=== PATIENT | male | born 1950 | race Caucasian/White ===

== ENCOUNTER 2025-04-11 07:56 | Inpatient (IN) ==
--- NOTE | 2025-04-11 08:24 | Emergency Department Note ---
Impression & Plan Mass of pancreas, Adenopathy, Epigastric abdominal pain ED Provider Note NAME: REMEDIOS GUY AGE: 74 SEX: M : 1950 ARRIVES VIA: Walk-In INFORMANT: Patient, ED PROVIDER(S): Mike Diop DO CHIEF COMPLAINT: Abdominal pain HPI: The patient is a 74-year-old male who presented to the emergency department for upper abdominal pain. The patient's had upper abdominal pain over the course of the last several weeks. The patient was seen by his primary care physician. He is had some laboratory studies done as well as some radiographic studies but no definite cause for his pain could be found as of yet. The patient has been having generalized weakness. He is also been having fatigue. The patient denies having any black or tarry stools. He did have anemia noted on his workup. His presents to the Emergency Department with him and does give part of the history. The patient has noticed some swelling at the base of his neck. Also some swelling in his left axilla. ROS: See above HPI for pertinent positives & negatives. A total of 10 systems reviewed and were otherwise negative. PAST MEDICAL HISTORY: See Below PAST SURGICAL HISTORY: See Below FAMILY HISTORY: See Below SOCIAL HISTORY: See Below HOME MEDICATIONS: See Below ALLERGIES: See Below VITALS: See Below PHYSICAL EXAMINATION: GENERAL: Patient is awake alert in no acute distress patient is resting comfortably and showing no signs of anxiety EYES: The conjunctivae are clear. The pupils are round and reactive. EARS, NOSE, MOUTH AND THROAT: The nose is without any evidence of any deformity. NECK: The neck is nontender and supple. There was questionable adenopathy noted in the supraclavicular region on the left side. RESPIRATORY: Normal respiratory effort is noted there is no evidence of wheezing rhonchi or rales CARDIOVASCULAR: Regular rate and rhythm noted there no murmurs rubs or gallops normal S1 normal S2. GASTROINTESTINAL: The abdomen is soft and distended. There is left lower quadrant tenderness to palpation which is moderate. There is no guarding rigidity. MUSCULOSKELETAL/EXTREMITIES: There is no evidence of gross deformity full range of motion is noted in the hips and shoulders. SKIN: There is no obvious evidence of any rash. There are no petechiae, pallor or cyanosis noted. NEUROLOGIC: Patient is awake alert and oriented x3. Gait was stable. MEDICAL DECISION MAKING: The patient is a 74-year-old male who presented to the emergency department for an evaluation of epigastric pain. The patient's had ongoing symptoms over the last several weeks. The patient also noticed weight loss as well as adenopathy in the supraclavicular region as well as the axilla. The patient did have a workup through his primary care physician but at this time no imaging of his abdomen other than an ultrasound was done. I discussed the patient's laboratory and radiographic studies with him. He was treated with pain medication in the emergency department. At this time the patient does appear to have a mass which is either part of his pancreas or adjacent to his pancreas which is likely the primary cause of the patient's presentation. He was also found to have diffuse adenopathy in the thoracic and abdominal regions. Given these findings the patient may require further inpatient workup as well as biopsy for a tissue diagnosis. The patient's case was discussed with the [facility]ist group. Triage Nursing notes reviewed. Prior medical records reviewed Vital Signs: reviewed and remarkable for elevated blood pressure. Differential diagnosis: Etiologies such as appendicitis, diverticulitis, obstruction, inflammatory bowel disease, renal colic, PUD, biliary pathology, pancreatitis, mesenteric ischemia, aortic pathology, infections, genitourinary, UTI, perforated viscus, as well as others were entertained. ER treatment provided: See below Diagnostics interpreted by me: ECG: EKG was obtained in the emergency department. My interpretation is sinus tachycardia 111 bpm. No PVCs were noted. Right bundle branch block pattern was appreciated. QTc was 522 ms. This is likely secondary to the bundle branch calculation. Cardiac Monitoring: An order was placed for continuous cardiac monitoring. The monitor shows a rate of 105 bpm with sinus rhythm. Laboratory studies: As stated above and show below. Imaging studies: See below. Radiographic imaging was reviewed by myself Consultation(s): I discussed this case with Mireille who is on-call for the [facility] hospitalist group. Past Med/Surg History Problem List (Updated 04/11/25 @ 10:14 by Mike Diop DO) Epigastric abdominal pain (Acute) Adenopathy (Acute) Mass of pancreas (Acute) Medical History (Updated 04/11/25 @ 10:14 by Mike Diop DO) Diabetes Hypertension Surgical History (Updated 04/11/25 @ 09:56 by Mike Diop DO) History of appendectomy Social History Smoking Status: Former smoker Tobacco Type: Cigarettes Preferred Language: Chinese Feels Safe at Home: Yes Home Meds Home Medications Medication Instructions Recorded Confirmed aspirin 81 mg tablet 81 mg PO DAILY 04/11/25 04/11/25 cholecalciferol (vitamin D3) 25 1,000 unit PO DAILY 04/11/25 04/11/25 mcg (1,000 unit) tablet (Vitamin D3) empagliflozin 10 mg tablet 0 mg PO DIRECTED 04/11/25 04/11/25 (Jardiance) finasteride 5 mg tablet 5 mg PO QAM 04/11/25 04/11/25 metformin 500 mg tablet 500 mg PO BID 04/11/25 04/11/25 simvastatin 40 mg tablet 40 mg PO HS 04/11/25 04/11/25 terazosin 2 mg capsule 2 mg PO HS 04/11/25 04/11/25 Results & Data (ED) Vital Signs Vital Signs - 24 hr 04/11/25 08:01 04/11/25 08:19 04/11/25 08:20 Temperature 36.5 C Temperature Source Temporal Artery Scan Pulse Rate 97 H 110 H Pulse Rate [Apical] 105 H Respiratory Rate 16 12 Respiratory Effort / Characteristics Non-Labored Respiratory Depth Normal Blood Pressure 150/84 H Blood Pressure [Right Arm] 148/92 H Blood Pressure Mean 106 Blood Pressure Mean [Right Arm] 110 Pulse Oximetry 97 98 Oxygen Delivery Method Room Air Room Air Sepsis Recent Fever Within 48 Hours No Sepsis New/Unexplained Change in Mental Status No Sepsis Action Taken by Nursing No Action Required 04/11/25 08:20 04/11/25 10:31 Temperature Temperature Source Pulse Rate 105 H Pulse Rate [Apical] 87 Respiratory Rate 12 20 Respiratory Effort / Characteristics Respiratory Depth Blood Pressure Blood Pressure [Right Arm] 179/92 H Blood Pressure Mean Blood Pressure Mean [Right Arm] 121 Pulse Oximetry 98 98 Oxygen Delivery Method Room Air Room Air Sepsis Recent Fever Within 48 Hours Sepsis New/Unexplained Change in Mental Status Sepsis Action Taken by [facility] Medications Current Medication List: was personally reviewed by me Laboratory Data Attestation: I reviewed the patient's lab results. 04/11/25 08:18 04/11/25 08:18 Lab Results 04/11/25 04/11/25 Range/Units 08:18 08:22 WBC 6.47 (4.8-10.8) K/ul RBC 4.86 (4.70-6.10) M/uL Hgb 11.9 L (14.0-18.0) g/dl POC Hgb 13.3 L (14.0-18.0) g/dl Hct 36.6 L (42.0-52.0) % POC Hct 39 L (42-52) % MCV 75.3 L (80.0-100.0) fL MCH 24.5 L (25.0-34.0) pg MCHC 32.5 (32.0-36.0) g/dL RDW Std Deviation 43.8 (36.4-46.3) fL RDW Coeff of Grady 16.0 H (11.5-14.5) % Plt Count 184 (130-400) K/uL MPV 9.7 (9.4-12.4) fL Immature Gran % (Auto) 0.2 % Neut % (Auto) 69.9 % Lymph % (Auto) 11.9 % Brantley % (Auto) 15.8 % Eos % (Auto) 1.9 % Baso % (Auto) 0.3 % Neut # (Auto) 4.53 (1.40-6.50) K/uL Lymph # (Auto) 0.77 L (1.20-3.40) K/uL Brantley # (Auto) 1.02 H (0.11-0.59) K/uL Eos # (Auto) 0.12 (0.00-0.50) K/uL Baso # (Auto) 0.02 (0.00-0.20) K/uL Immature Gran # (Auto) 0.01 (0.01-0.20) K/uL PT 11.5 (9.0-12.0) Seconds INR 1.1 (0.9-1.1) APTT 29 (21-31) Seconds PTT Ratio 1.1 POC Sodium 136 (135-144) mmol/L Sodium 134 L (136-145) mmol/L POC Potassium 3.8 (3.3-5.0) mmol/L Potassium 3.8 (3.5-5.1) mmol/L POC Chloride 104 (101-112) mmol/L Chloride 101 (98-107) mmol/L Carbon Dioxide 25 (21-32) mmol/L POC Total CO2 22 L (24-31) mmol/L Anion Gap 8 (3-11) POC Anion Gap 15.0 L (16-25) mmol/L POC BUN 15 (7-18) mg/dl BUN 15 (6-23) mg/dl Creatinine 1.03 (0.6-1.4) mg/dl POC Creatinine 1.1 (0.6-1.3) mg/dl Est Cr Clr Drug Dosing 71.8 ml/min eGFR 75.75 BUN/Creatinine Ratio 14.6 (10-20) Glucose 162 H (70-99(Fasting)) mg/dl POC Glucose (other) 165 H (70-99) mg/dl Calcium 10.2 (8.6-10.3) mg/dl POC Ioniz Calcium Markus 1.23 (1.12-1.32) mmol/l Total Bilirubin 0.4 (0.2-1.0) mg/dl AST 20 (13-39) U/L ALT 21 (7-52) U/L Alkaline Phosphatase 70 (34-104) U/L Troponin I High Sens 7.2 (0-20) pg/ml Total Protein 8.1 (6.0-8.3) gm/dl Albumin 3.5 (3.4-5.0) gm/dl Globulin 4.6 H (2.5-4.0) gm/dl Albumin/Globulin Ratio 0.8 L (0.9-2) Lipase 31 (11-82) U/L Urine Color Yellow Urine Appearance Clear (Clear) Urine pH 6.0 (4.5-7.5) Ur Specific [place] 1.016 (1.000-1.030) Urine Protein 1+ H (Negative) Urine Glucose (UA) Negative (Negative) Urine Ketones 1+ H (Negative) Urine Blood Negative (Negative) Urine Nitrite Negative (Negative) Urine Bilirubin Negative (Negative) Urine Urobilinogen Negative (Negative) Ur Leukocyte Esterase Negative (Negative) Urine WBC (Auto) 0-5 (0-5) /hpf Urine RBC (Auto) 0-2 (0-2) /hpf U Hyaline Cast (Auto) 3-5 H (0-2) /lpf U Epithel Cells (Auto) 0-2 (0-2) /hpf Urine Bacteria (Auto) None Seen (None Seen) Urine Comment Administered Medications Morphine Sulfate (Morphine Sulfate 4 Mg/Ml 1 Ml Carp\Vial) 4 mg IV Q15M PRN PRN Reason: Pain Stop: 04/25/25 08:20 Last Admin: 04/11/25 08:31 Dose: 4 mg Documented By: MARY Discontinued Medications Sodium Chloride (Nss) 1,000 mls @ 999 mls/hr IV .Q1H1M STA Stop: 04/11/25 09:21 Last Infusion: 04/11/25 10:06 Dose: Infused Documented By: Admin: 04/11/25 08:31 Dose: 999 mls/hr Documented By: MARY Ioversol (Optiray 320 125ml) 120 ml IV ONCE ONE Stop: 04/11/25 08:40 Last Admin: 04/11/25 08:40 Dose: 120 ml Documented By: CLAUDETTE Ondansetron HCl (Ondansetron Inj 2 Mg/Ml 2 Ml Vial) 4 mg IV NOW STA Stop: 04/11/25 08:22 Last Admin: 04/11/25 08:31 Dose: 4 mg Documented By: MARY Imaging Data Attestation: I personally reviewed and interpreted this imaging study as follows: My Impression: CT of the abdomen and pelvis was obtained in the emergency department. My interpretation is no free air or signs of bowel obstruction, final report below. Radiologist's Impression: Abdomen/Pelvis CT 04/11/25 08:21 EXAM: CT Angiography Chest and CT Abdomen and Pelvis With Intravenous Contrast INDICATION: Upper abdominal pain, fatigue and weight loss. TECHNIQUE: Axial computed tomographic angiography images of the chest and axial computed tomography images of the abdomen and pelvis with intravenous contrast. Sagittal and coronal reformatted images were created and reviewed. This CT exam was performed using one or more of the following dose reduction techniques: automated exposure control, adjustment of the mA and/or kV according to patient size, and/or use of iterative reconstruction technique. MIP reconstructed images were created and reviewed. CONTRAST: 120 ml of Optiray 320 was administered intravenously. COMPARISON: No relevant prior studies available. FINDINGS: CHEST: Aorta: See below. Pulmonary arteries: No significant abnormality noted. No pulmonary embolism is identified. Great vessels of aortic arch: No acute change noted. No dissection. No arterial occlusion or significant stenosis. Lungs and pleural spaces: No abnormality noted. No mass. No consolidation. No significant effusion. No pneumothorax. Heart: No abnormality noted. No cardiomegaly. No significant pericardial effusion. ABDOMEN: Liver: The liver is enlarged measuring 23.0 cm long. Hypodensity noted typical of fatty replacement. Smooth cortical contour. No mass or ductal dilation. Gallbladder and bile ducts: No abnormality noted. No calcified stones. No ductal dilation. Pancreas: Inseparable from the posterior aspect of the pancreatic body is a 5.7 x 3.5 x 4.5 cm.The mass encases the celiac trunk without occlusion. Possible mild distal pancreatic inflammation. No pancreatic gas. No evidence ductal dilatation. Spleen: The spleen is enlarged to 14.2 cm. There multiple foci of hypodensity. Adrenals: No abnormality noted. No mass. Kidneys and ureters: Simple bilateral renal cysts noted. No follow-up necessary. No stones or hydronephrosis. No solid mass. Stomach and bowel: No abnormality noted. No obstruction. No mucosal thickening. PELVIS: Appendix: Appendectomy. Bladder: Mild thickening of the urinary bladder present. No gas or stones. Reproductive: No significant abnormality noted. CHEST, ABDOMEN and PELVIS: Intraperitoneal space: Small amounts of free fluid in the pelvis. No abscess. No free air. There is mild scattered stranding of the mesentery and retroperitoneal fat. Bones/joints: Degenerative changes noted throughout the spine. No acute osseous abnormality seen. Soft tissues: No abnormality noted. Vasculature: Atherosclerotic calcification of the aorta and branches. No aneurysm. Lymph nodes: Multiple enlarged left axillary nodes present measuring up to short axis dimension 1.7 cm. There are multiple shoddy and minimally enlarged paratracheal nodes. There are small retrocrural nodes. There are matted retroperitoneal nodes measuring up to 2.2 cm diameter. Increased numbers of small mesenteric nodes present. There are shotty periportal nodes. There are shotty and few minimally enlarged bilateral iliac nodes. IMPRESSION: 1. There is a mass within or abutting the pancreatic body with findings concerning for mild acute pancreatitis of the tail. 2. Thoracic, abdominal and pelvic adenopathy most concerning for metastatic disease. 3. Hepatosplenomegaly. Areas of hypodensity scattered throughout the spleen could reflect metastatic disease. 4. Suspect cystitis. Correlate with urinalysis. 5. No pulmonary embolus noted. 6. Large fatty liver. ACT 112: N/A Electronically signed by Suad Hilton 04-11-2025 09:13 AM Chest CTA 04/11/25 08:21 EXAM: CT Angiography Chest and CT Abdomen and Pelvis With Intravenous Contrast INDICATION: Upper abdominal pain, fatigue and weight loss. TECHNIQUE: Axial computed tomographic angiography images of the chest and axial computed tomography images of the abdomen and pelvis with intravenous contrast. Sagittal and coronal reformatted images were created and reviewed. This CT exam was performed using one or more of the following dose reduction techniques: automated exposure control, adjustment of the mA and/or kV according to patient size, and/or use of iterative reconstruction technique. MIP reconstructed images were created and reviewed. CONTRAST: 120 ml of Optiray 320 was administered intravenously. COMPARISON: No relevant prior studies available. FINDINGS: CHEST: Aorta: See below. Pulmonary arteries: No significant abnormality noted. No pulmonary embolism is identified. Great vessels of aortic arch: No acute change noted. No dissection. No arterial occlusion or significant stenosis. Lungs and pleural spaces: No abnormality noted. No mass. No consolidation. No significant effusion. No pneumothorax. Heart: No abnormality noted. No cardiomegaly. No significant pericardial effusion. ABDOMEN: Liver: The liver is enlarged measuring 23.0 cm long. Hypodensity noted typical of fatty replacement. Smooth cortical contour. No mass or ductal dilation. Gallbladder and bile ducts: No abnormality noted. No calcified stones. No ductal dilation. Pancreas: Inseparable from the posterior aspect of the pancreatic body is a 5.7 x 3.5 x 4.5 cm. The mass encases the celiac trunk without occlusion.Possible mild distal pancreatic inflammation. No pancreatic gas. No evidence ductal dilatation. Spleen: The spleen is enlarged to 14.2 cm. There multiple foci of hypodensity. Adrenals: No abnormality noted. No mass. Kidneys and ureters: Simple bilateral renal cysts noted. No follow-up necessary. No stones or hydronephrosis. No solid mass. Stomach and bowel: No abnormality noted. No obstruction. No mucosal thickening. PELVIS: Appendix: Appendectomy. Bladder: Mild thickening of the urinary bladder present. No gas or stones. Reproductive: No significant abnormality noted. CHEST, ABDOMEN and PELVIS: Intraperitoneal space: Small amounts of free fluid in the pelvis. No abscess. No free air. There is mild scattered stranding of the mesentery and retroperitoneal fat. Bones/joints: Degenerative changes noted throughout the spine. No acute osseous abnormality seen. Soft tissues: No abnormality noted. Vasculature: Atherosclerotic calcification of the aorta and branches. No aneurysm. Lymph nodes: Multiple enlarged left axillary nodes present measuring up to short axis dimension 1.7 cm. There are multiple shoddy and minimally enlarged paratracheal nodes. There are small retrocrural nodes. There are matted retroperitoneal nodes measuring up to 2.2 cm diameter. Increased numbers of small mesenteric nodes present. There are shotty periportal nodes. There are shotty and few minimally enlarged bilateral iliac nodes. IMPRESSION: 1. There is a mass within or abutting the pancreatic body with findings concerning for mild acute pancreatitis of the tail. 2. Thoracic, abdominal and pelvic adenopathy most concerning for metastatic disease. 3. Hepatosplenomegaly. Areas of hypodensity scattered throughout the spleen could reflect metastatic disease. 4. Suspect cystitis. Correlate with urinalysis. 5. No pulmonary embolus noted. 6. Large fatty liver. ACT 112: N/A Electronically signed by Suad Hilton 04-11-2025 09:13 AM Discharge Plan Visit Data Chief Complaint: Illness Stated Complaint: FATIGUE, WEAKNESS, COLD, ANEMIC ED Provider: Mike Diop Discharge Problem: Mass of pancreas, Adenopathy, Epigastric abdominal pain Patient Disposition: Being Evaluated by Hospitalist Condition: Fair Forms Stand Alone Forms: My [facility] Prescriptions Prescriptions: No Action metformin 500 mg tablet 500 mg PO BID simvastatin 40 mg tablet 40 mg PO HS terazosin 2 mg capsule 2 mg PO HS aspirin 81 mg Tablet 81 mg PO DAILY finasteride 5 mg tablet 5 mg PO QAM cholecalciferol (vitamin D3) [Vitamin D3] 25 mcg (1,000 unit) Tablet 1,000 unit PO DAILY Jardiance 10 mg tablet 0 mg PO DIRECTED Rx Instructions: IS PRESRIBED BUT STOP TAKING AROUND 3 WEEKS AGO DUE TO MAKING HIM FEEL ILL Referrals Referrals: PCP,NO [Primary Care Provider] -
[2025-04-11 08:30] LABS: Hematocrit (blood only) 36.6 % (42.0-52.0); Hemoglobin 11.9 g/dl (14.0-18.0); Immature Granulocytes # (auto) 0.01 K/uL (0.01-0.20); Immature Granulocytes % (auto) 0.2 %; Mean Corpuscular Hemoglobin 24.5 pg (25.0-34.0); Mean Corpuscular Volume 75.3 fL (80.0-100.0); Platelet Count 184 K/uL (130-400); RDW Standard Deviation 43.8 fL (36.4-46.3); Red Blood Count 4.86 M/uL (4.70-6.10); White Blood Count 6.47 K/ul (4.8-10.8)
[2025-04-11] MEDS: MoRPHine SULFATE 4 MG/ML 1 ML CARP\\VIAL IV PRN (08:31)
[2025-04-11] MEDS: ONDANSETRON INJ 2 MG/ML 2 ML VIAL IV STA (08:31)
[2025-04-11] MEDS: SODIUM CHLORIDE 0.9% 1,000 ML IV STA (08:31)
[2025-04-11 08:37] LABS: Appearance Urine Clear (Clear); Bacteria Urine Automated None Seen (None Seen); Epithelial Cell Urine Auto 0-2 /hpf (0-2); Glucose Urine UA Negative (Negative); RBC Urine Automated 0-2 /hpf (0-2); WBC Urine Automated 0-5 /hpf (0-5)
[2025-04-11] MEDS: OPTIRAY 320 125ml IV ONE (08:40)
[2025-04-11 08:47] LABS: Alanine Aminotransferase 21.0 U/L (7-52); Albumin Globulin Ratio 0.8 (0.9-2); Albumin Level 3.5 gm/dl (3.4-5.0); Alkaline Phosphatase 70.0 U/L (34-104); Anion Gap 8.0 (3-11); Bilirubin,Total 0.4 mg/dl (0.2-1.0); Blood Urea Nitrogen 15.0 mg/dl (6-23); Calcium 10.2 mg/dl (8.6-10.3); Carbon Dioxide 25.0 mmol/L (21-32); Chloride 101.0 mmol/L (98-107); Creatinine Clr Calc Pharmacy 71.8 ml/min; Globulin 4.6 gm/dl (2.5-4.0); Glucose 162.0 mg/dl (70-99(Fasting)); Lipase 31.0 U/L (11-82); Potassium 3.8 mmol/L (3.5-5.1); Sodium 134.0 mmol/L (136-145); Total Protein 8.1 gm/dl (6.0-8.3)
--- NOTE | 2025-04-11 09:13 | CT Scan Report ---
EXAM: CT Angiography Chest and CT Abdomen and Pelvis With Intravenous Contrast INDICATION: Upper abdominal pain, fatigue and weight loss. TECHNIQUE: Axial computed tomographic angiography images of the chest and axial computed tomography images of the abdomen and pelvis with intravenous contrast. Sagittal and coronal reformatted images were created and reviewed. This CT exam was performed using one or more of the following dose reduction techniques: automated exposure control, adjustment of the mA and/or kV according to patient size, and/or use of iterative reconstruction technique. MIP reconstructed images were created and reviewed. CONTRAST: 120 ml of Optiray 320 was administered intravenously. COMPARISON: No relevant prior studies available. FINDINGS: CHEST: Aorta: See below. Pulmonary arteries: No significant abnormality noted. No pulmonary embolism is identified. Great vessels of aortic arch: No acute change noted. No dissection. No arterial occlusion or significant stenosis. Lungs and pleural spaces: No abnormality noted. No mass. No consolidation. No significant effusion. No pneumothorax. Heart: No abnormality noted. No cardiomegaly. No significant pericardial effusion. ABDOMEN: Liver: The liver is enlarged measuring 23.0 cm long. Hypodensity noted typical of fatty replacement. Smooth cortical contour. No mass or ductal dilation. Gallbladder and bile ducts: No abnormality noted. No calcified stones. No ductal dilation. Pancreas: Inseparable from the posterior aspect of the pancreatic body is a 5.7 x 3.5 x 4.5 cm. The mass encases the celiac trunk without occlusion.Possible mild distal pancreatic inflammation. No pancreatic gas. No evidence ductal dilatation. Spleen: The spleen is enlarged to 14.2 cm. There multiple foci of hypodensity. Adrenals: No abnormality noted. No mass. Kidneys and ureters: Simple bilateral renal cysts noted. No follow-up necessary. No stones or hydronephrosis. No solid mass. Stomach and bowel: No abnormality noted. No obstruction. No mucosal thickening. PELVIS: Appendix: Appendectomy. Bladder: Mild thickening of the urinary bladder present. No gas or stones. Reproductive: No significant abnormality noted. CHEST, ABDOMEN and PELVIS: Intraperitoneal space: Small amounts of free fluid in the pelvis. No abscess. No free air. There is mild scattered stranding of the mesentery and retroperitoneal fat. Bones/joints: Degenerative changes noted throughout the spine. No acute osseous abnormality seen. Soft tissues: No abnormality noted. Vasculature: Atherosclerotic calcification of the aorta and branches. No aneurysm. Lymph nodes: Multiple enlarged left axillary nodes present measuring up to short axis dimension 1.7 cm. There are multiple shoddy and minimally enlarged paratracheal nodes. There are small retrocrural nodes. There are matted retroperitoneal nodes measuring up to 2.2 cm diameter. Increased numbers of small mesenteric nodes present. There are shotty periportal nodes. There are shotty and few minimally enlarged bilateral iliac nodes. IMPRESSION: 1. There is a mass within or abutting the pancreatic body with findings concerning for mild acute pancreatitis of the tail. 2. Thoracic, abdominal and pelvic adenopathy most concerning for metastatic disease. 3. Hepatosplenomegaly. Areas of hypodensity scattered throughout the spleen could reflect metastatic disease. 4. Suspect cystitis. Correlate with urinalysis. 5. No pulmonary embolus noted. 6. Large fatty liver. ACT 112: N/A Electronically signed by Suad Hilton 04-11-2025 09:13 AM
[2025-04-11 09:17] LABS: INR 1.1 (0.9-1.1); Partial Thromboplastin Time 29 Seconds (21-31); Prothrombin Time 11.5 Seconds (9.0-12.0)
--- NOTE | 2025-04-11 11:23 | History & Physical Report ---
Date of Service April 11, 2025 Assessment & Plan (1) Epigastric abdominal pain: (2) Adenopathy: (3) Mass of pancreas: (4) Diabetes: (5) Hypertension: Plan The patient is a 74-year-old male who presented to the ED on 04/11/2025 with complaints of 50 pound weight loss/generalized abdominal pain over the past 5-6 months, found to have new pancreatic mass New pancreatic mass Splenic mets Abdominal/axillary lymphadenopathy 5-6 months of ongoing generalized pain -Outpatient abdominal ultrasound showed 2 lesions on the pancreas CT A/P with splenic mets/lymphadenopathy/pancreatic mass Consult GI, abdominal MRI adbomen pending, pain control -NPO MN - for possible biopsy tomorrow Dm2: Managed on metformin at home, recently taken off of Jardiance due to side effects SSI while inpatient, CTM Hx BPH: Continue terazosin/finasteride A total of 55 minutes was spent on chart review/reviewing diagnostic data/facilitating plan of care/discussion with consultants Full code Dvt proph: lovenox History of Present Illness Chief Complaint: Abdominal pain, weight loss Primary Care Provider: NO PCP The patient is a 74-year-old male with a past medical history of DM2, HLD, HTN, BPH, vitamin D deficiency who presents to the ED on 04/11/2025 with complaints of ongoing abdominal pain over the past 5 weeks patient's also reports fatigue and loss of appetite. Patient had a 50 pound weight loss over the past 2 years. Patient was following with his doctors outpatient but his was concerned and wanted him to be evaluated sooner. The patient reports that the patient had an outpatient ultrasound of his abdomen and right upper quadrant that showed 2 small lesions on his pancreas. They were scheduled to have an MRI of the abdomen on may 07. Patient's denies any fever/chills/chest pain/shortness of breath. He does report some very vague symptoms including the patient claiming that he felt he was "punched in his stomach" and had a dull right upper quadrant pain. The patient was started on Jardiance 1 year ago and the weight loss was contributed to the Jardiance. The patient was also constipated, he had a colonoscopy completed in January that was unremarkable. Labs are remarkable for hemoglobin 11.9, NA 134, CO2 22, anion gap 15, glucose 162, urinalysis unremarkable Chest CTA/ Abdominal/pelvis CT showed: 1. There is a mass within or abutting the pancreatic body with findings concerning for mild acute pancreatitis of the tail. 2. Thoracic, abdominal and pelvic adenopathy most concerning for metastatic disease. 3. Hepatosplenomegaly. Areas of hypodensity scattered throughout the spleen could reflect metastatic disease. 4. Suspect cystitis. Correlate with urinalysis. 5. No pulmonary embolus noted. 6. Large fatty liver. Lymph nodes: Multiple enlarged left axillary nodes present measuring up to short axis dimension 1.7 cm. There are multiple shoddy and minimally enlarged paratracheal nodes. There are small retrocrural nodes. There are matted retroperitoneal nodes measuring up to 2.2 cm diameter. Increased numbers of small mesenteric nodes present. There are shotty periportal nodes. There are shotty and few minimally enlarged bilateral iliac nodes. Allergies Allergy/AdvReac Type Severity Reaction Status Date / Time niacin AdvReac Unknown Unknown Verified 04/11/25 11:32 Home Medications Medication Instructions Recorded Confirmed Type aspirin 81 mg tablet 81 mg PO DAILY 04/11/25 04/11/25 History cholecalciferol (vitamin D3) 25 1,000 unit PO DAILY 04/11/25 04/11/25 History mcg (1,000 unit) tablet (Vitamin D3) empagliflozin 10 mg tablet 0 mg PO DIRECTED 04/11/25 04/11/25 History (Jardiance) finasteride 5 mg tablet 5 mg PO QAM 04/11/25 04/11/25 History metformin 500 mg tablet 500 mg PO BID 04/11/25 04/11/25 History simvastatin 40 mg tablet 40 mg PO HS 04/11/25 04/11/25 History terazosin 2 mg capsule 2 mg PO HS 04/11/25 04/11/25 History Past Med/Surg History Problem List (Updated 04/11/25 @ 10:14 by Mike Diop DO) Epigastric abdominal pain (Acute) Adenopathy (Acute) Mass of pancreas (Acute) Medical History (Updated 04/11/25 @ 10:14 by Mike Diop DO) Diabetes Hypertension Surgical History (Updated 04/11/25 @ 09:56 by Mike Diop DO) History of appendectomy Social History Smoking Status: Former smoker Tobacco Type: Cigarettes Second Hand Exposure: No; Do You Dip or Chew Tobacco: No; Hx Alcohol Use: No Hx Substance Use: No Preferred Language: Venezuelan Communication Ability: Effective Welfare Project Manager Required: No Beliefs That Will Affect Care: None Current Living Situation: Spouse Other Information That Helps Us Care for You: No Feels Safe at Home: Yes Safety Concerns: Feels Safe At This Time Assistive Devices: None Review of Systems Review of Systems: All systems reviewed & are unremarkable except as noted in HPI & below Physical Exam Physical Exam: please see addendum Results & Data Results & Data Vital Signs (Past 12 Hours) Vital Signs Temp Pulse Pulse Resp BP BP Pulse Ox 04/11/25 10:31 87 20 179/92 H 98 04/11/25 08:20 105 H 12 98 04/11/25 08:20 105 H 12 148/92 H 98 04/11/25 08:19 110 H 04/11/25 08:01 36.5 C 97 H 16 150/84 H 97 O2 Del Method 04/11/25 10:31 Room Air 04/11/25 08:20 Room Air 04/11/25 08:20 Room Air 04/11/25 08:19 04/11/25 08:01 Room Air Laboratory Results Laboratory Results WBC 6.47 K/ul (4.8-10.8) 04/11/25 08:18 RBC 4.86 M/uL (4.70-6.10) 04/11/25 08:18 Hgb 11.9 g/dl (14.0-18.0) L 04/11/25 08:18 POC Hgb 13.3 g/dl (14.0-18.0) L 04/11/25 08:22 Hct 36.6 % (42.0-52.0) L 04/11/25 08:18 POC Hct 39 % (42-52) L 04/11/25 08:22 MCV 75.3 fL (80.0-100.0) L 04/11/25 08:18 MCH 24.5 pg (25.0-34.0) L 04/11/25 08:18 MCHC 32.5 g/dL (32.0-36.0) 04/11/25 08:18 RDW Std Deviation 43.8 fL (36.4-46.3) 04/11/25 08:18 RDW Coeff of Grady 16.0 % (11.5-14.5) H 04/11/25 08:18 Plt Count 184 K/uL (130-400) 04/11/25 08:18 MPV 9.7 fL (9.4-12.4) 04/11/25 08:18 Immature Gran % (Auto) 0.2 % 04/11/25 08:18 Neut % (Auto) 69.9 % 04/11/25 08:18 Lymph % (Auto) 11.9 % 04/11/25 08:18 [place] % (Auto) 15.8 % 04/11/25 08:18 Eos % (Auto) 1.9 % 04/11/25 08:18 Baso % (Auto) 0.3 % 04/11/25 08:18 Neut # (Auto) 4.53 K/uL (1.40-6.50) 04/11/25 08:18 Lymph # (Auto) 0.77 K/uL (1.20-3.40) L 04/11/25 08:18 [place] # (Auto) 1.02 K/uL (0.11-0.59) H 04/11/25 08:18 Eos # (Auto) 0.12 K/uL (0.00-0.50) 04/11/25 08:18 Baso # (Auto) 0.02 K/uL (0.00-0.20) 04/11/25 08:18 Immature Gran # (Auto) 0.01 K/uL (0.01-0.20) 04/11/25 08:18 PT 11.5 Seconds (9.0-12.0) 04/11/25 08:18 INR 1.1 (0.9-1.1) 04/11/25 08:18 APTT 29 Seconds (21-31) 04/11/25 08:18 PTT Ratio 1.1 04/11/25 08:18 POC Sodium 136 mmol/L (135-144) 04/11/25 08:22 Sodium 134 mmol/L (136-145) L 04/11/25 08:18 POC Potassium 3.8 mmol/L (3.3-5.0) 04/11/25 08:22 Potassium 3.8 mmol/L (3.5-5.1) 04/11/25 08:18 POC Chloride 104 mmol/L (101-112) 04/11/25 08:22 Chloride 101 mmol/L (98-107) 04/11/25 08:18 Carbon Dioxide 25 mmol/L (21-32) 04/11/25 08:18 POC Total CO2 22 mmol/L (24-31) L 04/11/25 08:22 Anion Gap 8 (3-11) 04/11/25 08:18 POC Anion Gap 15.0 mmol/L (16-25) L 04/11/25 08:22 POC BUN 15 mg/dl (7-18) 04/11/25 08:22 BUN 15 mg/dl (6-23) 04/11/25 08:18 Creatinine 1.03 mg/dl (0.6-1.4) 04/11/25 08:18 POC Creatinine 1.1 mg/dl (0.6-1.3) 04/11/25 08:22 Est Cr Clr Drug Dosing 71.8 ml/min 04/11/25 08:18 eGFR 75.75 04/11/25 08:18 BUN/Creatinine Ratio 14.6 (10-20) 04/11/25 08:18 Glucose 162 mg/dl (70-99(Fasting)) H 04/11/25 08:18 POC Glucose (other) 165 mg/dl (70-99) H 04/11/25 08:22 Calcium 10.2 mg/dl (8.6-10.3) 04/11/25 08:18 POC Ioniz Calcium Markus 1.23 mmol/l (1.12-1.32) 04/11/25 08:22 Total Bilirubin 0.4 mg/dl (0.2-1.0) 04/11/25 08:18 AST 20 U/L (13-39) 04/11/25 08:18 ALT 21 U/L (7-52) 04/11/25 08:18 Alkaline Phosphatase 70 U/L (34-104) 04/11/25 08:18 Troponin I High Sens 7.2 pg/ml (0-20) 04/11/25 08:18 Total Protein 8.1 gm/dl (6.0-8.3) 04/11/25 08:18 Albumin 3.5 gm/dl (3.4-5.0) 04/11/25 08:18 Globulin 4.6 gm/dl (2.5-4.0) H 04/11/25 08:18 Albumin/Globulin Ratio 0.8 (0.9-2) L 04/11/25 08:18 Lipase 31 U/L (11-82) 04/11/25 08:18 Urine Color Yellow 04/11/25 08:18 Urine Appearance Clear (Clear) 04/11/25 08:18 Urine pH 6.0 (4.5-7.5) 04/11/25 08:18 Ur Specific Abie 1.016 (1.000-1.030) 04/11/25 08:18 Urine Protein 1+ (Negative) H 04/11/25 08:18 Urine Glucose (UA) Negative (Negative) 04/11/25 08:18 Urine Ketones 1+ (Negative) H 04/11/25 08:18 Urine Blood Negative (Negative) 04/11/25 08:18 Urine Nitrite Negative (Negative) 04/11/25 08:18 Urine Bilirubin Negative (Negative) 04/11/25 08:18 Urine Urobilinogen Negative (Negative) 04/11/25 08:18 Ur Leukocyte Esterase Negative (Negative) 04/11/25 08:18 Urine WBC (Auto) 0-5 /hpf (0-5) 04/11/25 08:18 Urine RBC (Auto) 0-2 /hpf (0-2) 04/11/25 08:18 U Hyaline Cast (Auto) 3-5 /lpf (0-2) H 04/11/25 08:18 U Epithel Cells (Auto) 0-2 /hpf (0-2) 04/11/25 08:18 Urine Bacteria (Auto) None Seen (None Seen) 04/11/25 08:18 Urine Comment 04/11/25 08:18 Impressions Abdomen/Pelvis CT 04/11/25 08:21 EXAM: CT Angiography Chest and CT Abdomen and Pelvis With Intravenous Contrast INDICATION: Upper abdominal pain, fatigue and weight loss. TECHNIQUE: Axial computed tomographic angiography images of the chest and axial computed tomography images of the abdomen and pelvis with intravenous contrast. Sagittal and coronal reformatted images were created and reviewed. This CT exam was performed using one or more of the following dose reduction techniques: automated exposure control, adjustment of the mA and/or kV according to patient size, and/or use of iterative reconstruction technique. MIP reconstructed images were created and reviewed. CONTRAST: 120 ml of Optiray 320 was administered intravenously. COMPARISON: No relevant prior studies available. FINDINGS: CHEST: Aorta: See below. Pulmonary arteries: No significant abnormality noted. No pulmonary embolism is identified. Great vessels of aortic arch: No acute change noted. No dissection. No arterial occlusion or significant stenosis. Lungs and pleural spaces: No abnormality noted. No mass. No consolidation. No significant effusion. No pneumothorax. Heart: No abnormality noted. No cardiomegaly. No significant pericardial effusion. ABDOMEN: Liver: The liver is enlarged measuring 23.0 cm long. Hypodensity noted typical of fatty replacement. Smooth cortical contour. No mass or ductal dilation. Gallbladder and bile ducts: No abnormality noted. No calcified stones. No ductal dilation. Pancreas: Inseparable from the posterior aspect of the pancreatic body is a 5.7 x 3.5 x 4.5 cm.The mass encases the celiac trunk without occlusion. Possible mild distal pancreatic inflammation. No pancreatic gas. No evidence ductal dilatation. Spleen: The spleen is enlarged to 14.2 cm. There multiple foci of hypodensity. Adrenals: No abnormality noted. No mass. Kidneys and ureters: Simple bilateral renal cysts noted. No follow-up necessary. No stones or hydronephrosis. No solid mass. Stomach and bowel: No abnormality noted. No obstruction. No mucosal thickening. PELVIS: Appendix: Appendectomy. Bladder: Mild thickening of the urinary bladder present. No gas or stones. Reproductive: No significant abnormality noted. CHEST, ABDOMEN and PELVIS: Intraperitoneal space: Small amounts of free fluid in the pelvis. No abscess. No free air. There is mild scattered stranding of the mesentery and retroperitoneal fat. Bones/joints: Degenerative changes noted throughout the spine. No acute osseous abnormality seen. Soft tissues: No abnormality noted. Vasculature: Atherosclerotic calcification of the aorta and branches. No aneurysm. Lymph nodes: Multiple enlarged left axillary nodes present measuring up to short axis dimension 1.7 cm. There are multiple shoddy and minimally enlarged paratracheal nodes. There are small retrocrural nodes. There are matted retroperitoneal nodes measuring up to 2.2 cm diameter. Increased numbers of small mesenteric nodes present. There are shotty periportal nodes. There are shotty and few minimally enlarged bilateral iliac nodes. IMPRESSION: 1. There is a mass within or abutting the pancreatic body with findings concerning for mild acute pancreatitis of the tail. 2. Thoracic, abdominal and pelvic adenopathy most concerning for metastatic disease. 3. Hepatosplenomegaly. Areas of hypodensity scattered throughout the spleen could reflect metastatic disease. 4. Suspect cystitis. Correlate with urinalysis. 5. No pulmonary embolus noted. 6. Large fatty liver. ACT 112: N/A Electronically signed by Suad Hilton 04-11-2025 09:13 AM Chest CTA 04/11/25 08:21 EXAM: CT Angiography Chest and CT Abdomen and Pelvis With Intravenous Contrast INDICATION: Upper abdominal pain, fatigue and weight loss. TECHNIQUE: Axial computed tomographic angiography images of the chest and axial computed tomography images of the abdomen and pelvis with intravenous contrast. Sagittal and coronal reformatted images were created and reviewed. This CT exam was performed using one or more of the following dose reduction techniques: automated exposure control, adjustment of the mA and/or kV according to patient size, and/or use of iterative reconstruction technique. MIP reconstructed images were created and reviewed. CONTRAST: 120 ml of Optiray 320 was administered intravenously. COMPARISON: No relevant prior studies available. FINDINGS: CHEST: Aorta: See below. Pulmonary arteries: No significant abnormality noted. No pulmonary embolism is identified. Great vessels of aortic arch: No acute change noted. No dissection. No arterial occlusion or significant stenosis. Lungs and pleural spaces: No abnormality noted. No mass. No consolidation. No significant effusion. No pneumothorax. Heart: No abnormality noted. No cardiomegaly. No significant pericardial effusion. ABDOMEN: Liver: The liver is enlarged measuring 23.0 cm long. Hypodensity noted typical of fatty replacement. Smooth cortical contour. No mass or ductal dilation. Gallbladder and bile ducts: No abnormality noted. No calcified stones. No ductal dilation. Pancreas: Inseparable from the posterior aspect of the pancreatic body is a 5.7 x 3.5 x 4.5 cm. The mass encases the celiac trunk without occlusion.Possible mild distal pancreatic inflammation. No pancreatic gas. No evidence ductal dilatation. Spleen: The spleen is enlarged to 14.2 cm. There multiple foci of hypodensity. Adrenals: No abnormality noted. No mass. Kidneys and ureters: Simple bilateral renal cysts noted. No follow-up necessary. No stones or hydronephrosis. No solid mass. Stomach and bowel: No abnormality noted. No obstruction. No mucosal thickening. PELVIS: Appendix: Appendectomy. Bladder: Mild thickening of the urinary bladder present. No gas or stones. Reproductive: No significant abnormality noted. CHEST, ABDOMEN and PELVIS: Intraperitoneal space: Small amounts of free fluid in the pelvis. No abscess. No free air. There is mild scattered stranding of the mesentery and retroperitoneal fat. Bones/joints: Degenerative changes noted throughout the spine. No acute osseous abnormality seen. Soft tissues: No abnormality noted. Vasculature: Atherosclerotic calcification of the aorta and branches. No aneurysm. Lymph nodes: Multiple enlarged left axillary nodes present measuring up to short axis dimension 1.7 cm. There are multiple shoddy and minimally enlarged paratracheal nodes. There are small retrocrural nodes. There are matted retroperitoneal nodes measuring up to 2.2 cm diameter. Increased numbers of small mesenteric nodes present. There are shotty periportal nodes. There are shotty and few minimally enlarged bilateral iliac nodes. IMPRESSION: 1. There is a mass within or abutting the pancreatic body with findings concerning for mild acute pancreatitis of the tail. 2. Thoracic, abdominal and pelvic adenopathy most concerning for metastatic disease. 3. Hepatosplenomegaly. Areas of hypodensity scattered throughout the spleen could reflect metastatic disease. 4. Suspect cystitis. Correlate with urinalysis. 5. No pulmonary embolus noted. 6. Large fatty liver. ACT 112: N/A Electronically signed by Suad Hilton 04-11-2025 09:13 AM Code Status & VTE Plan VTE Prophylaxis Plan VTE Prophylaxis will be ordered: Yes
[2025-04-11] MEDS ORDERED: DEXTROSE 50% 50 ML SYRINGE IV PRN (11:48)
[2025-04-11] MEDS ORDERED: GLUCAGON FOR INJ 1 MG VIAL SQ PRN (11:48)
[2025-04-11] MEDS ORDERED: GLUCOSE 10 TAB/TUBE PO PRN (11:48)
[2025-04-11] MEDS ORDERED: GLUCOSE 40% GEL 15 GM TUBE PO PRN (11:48)
[2025-04-11] MEDS ORDERED: CARBOHYDRATES FOR HYPOGLYCEMIA PO PRN (11:48)
[2025-04-11] MEDS: GADOBUTROL 65ML VIAL IV ONE (12:26)
--- NOTE | 2025-04-11 12:42 | Communication Note ---
Date of Service: April 11, 2025 Attending Addendum: Case reviewed with the advanced practitioner. I have personally performed a history and physical examination on the patient. I have reviewed the advanced practitioner's documentation on the date of service referenced in note, and I agree with, and take responsibility for the plan of care. please refer to her notes for full details patient seen and examined, records reviewed by myself as well on exam, patient seen resting in bed, not in distress reports he is having intermittent epigastric pain--> morphine helping no nausea/vomiting no chest pain, dyspnea, palpitations, dizziness no fever/chills no other symptoms VS noted and reviewed oriented x3, not in distress, speaks in sentences with no effort nor accessory muscle use normal rate, regular rhythm, no murmurs clear breath sounds bilaterally non distended, soft, nontender no bipedal edema, erythema, warmth no neuro deficits all labs, imaging noted and reviewed ASSESSMENT AND PLAN> PANCREATIC MASS WITH LYMPHADENOPATHY, NEW DIAGNOSIS presents with abdominal discomfort, weight loss of 50Lbs, progressive weakness for the past months highly suspicious for malignancy CT abdomen: 1. There is a mass within or abutting the pancreatic body with findings concerning for mild acute pancreatitis of the tail. 2. Thoracic, abdominal and pelvic adenopathy most concerning for metastatic disease. 3. Hepatosplenomegaly. Areas of hypodensity scattered throughout the spleen could reflect metastatic disease. 4. Suspect cystitis. Correlate with urinalysis. 5. No pulmonary embolus noted. 6. Large fatty liver. GI consult for possible endoscopic vs IR biopsy pain control IV fluids other chronic medical problems: Iron Deficiency Anemia- Hg at baseline DM 2 HTN BPH other diagnoses and plan of care as per advanced practitioner's notes I spent a total of 40 minutes coordinating, documenting, and providing care for this patient, excluding time spent in the performance of separately billed services or time spent by another provider/QHP. Amrit Frances MD
[2025-04-11] MEDS ORDERED: ACETAMINOPHEN 325 MG TAB PO PRN (12:49)
[2025-04-11] MEDS: LACTATED RINGER'S 1,000 ML IV SCH (13:29)
[2025-04-11] MEDS: ENOXAPARIN INJ 40 MG/0.4 ML SYR SQ SCH (13:34)
--- NOTE | 2025-04-11 14:00 | Magnetic Resonance Report ---
EXAM: MR abdomen wo/w con CLINICAL HISTORY: new pancreatic mass TECHNIQUE: Multiplanar, multisequence MR imaging was performed through the abdomen with and without IV contrast (9 mL Gadavist). COMPARISON: CT 04/11/2025. FINDINGS: Liver: Normal size and morphology. Homogeneous signal intensity on T1- and T2-weighted images. A few small hepatic focal lesions are seen only in T1 3D images, showing low T1 signal with no contrast enhancement, located in segments Asa (measuring 7 x 2 mm), segment VIII (measuring 5.6 x 1.5 mm), and segment V (measuring 7 x 3 mm). Normal enhancement pattern post-contrast. Gallbladder and Biliary System: The gallbladder is normal, with no stones or wall thickening. Intrahepatic and extrahepatic bile ducts are not dilated. Normal enhancement post-contrast. Pancreas: A large, irregular pancreatic mass is seen in the pancreatic body, encasing the splenic artery with almost 360 degrees of contact. It measures 4.2 x 3.6 x 3.2 cm in its maximum TS, AP, and CC dimensions, displaying mildly bright T2 and low T1 signal with restricted diffusion and mild peripheral enhancement. The lesion is inseparable from the adjacent left para-aortic amalgamated lymphadenopathy. Normal appearance of the pancreatic duct. Spleen: Multiple splenic focal lesions are noted, showing restricted diffusion and mildly bright T2 signal with mild progressive peripheral enhancement. The largest lesion is in the upper splenic pole and measures 3.7 x 3.4 cm in axial dimensions. Adrenal Glands: Normal size and morphology bilaterally. No adrenal masses. Normal enhancement post-contrast. Kidneys and Ureters: Normal size, shape, and position of both kidneys. Homogeneous signal intensity on T1- and T2-weighted images. No renal stones, masses, or hydronephrosis. Ureters are unremarkable. Normal enhancement post-contrast. Bilateral renal simple cortical cysts (Bosniak 1). Bowel: Normal appearance of the visualized bowel loops. No evidence of obstruction, wall thickening, or abnormal dilatation. No abnormal enhancement post-contrast. Vascular Structures: The abdominal aorta and its major branches are normal in caliber. No aneurysm or significant atherosclerosis. Normal enhancement post-contrast. Lymph Nodes: Multiple enlarged amalgamated abdominal lymph nodes, almost including all groups, namely, left paraaortic, aortocaval, portocaval, and peripancreatic nodes around the splenic hilum. The largest roughly measures 3.7 cm in short axis. Also, bilateral external iliac and common iliac nodes are noted. A few right paraesophageal enlarged lymph nodes are also seen Peritoneum: Mild ascites. Bones: No lytic or sclerotic lesions are seen. Soft Tissues: Normal appearance of the visualized soft tissues. IMPRESSION: 1. Pancreatic body mass with neoplastic features, with 360-degree contact with the splenic artery and inseparable from pathological abdominal amalgamated lymphadenopathy. 2. Multiple splenic focal lesions. 3. Diagnostic possibilities include lymphoma rather than metastatic pancreatic carcinoma. Histopathological correlation is advised. 4. A few hepatic focal lesions, with no restricted diffusion or enhancement, possibly simple cysts; however, close follow-up is advised. 5. Pathological abdominal and pelvic lymphadenopathy. 6. Mild ascites. Electronically signed by Elmer Childress 04-11-2025 13:59 PM
[2025-04-11] MEDS: MoRPHine SULFATE 2 MG/ML CARP IV PRN (17:05)
[2025-04-11] MEDS: INSULIN ASPART PER UNIT CHARGE SC SCH (17:10)
[2025-04-11] MEDS: SIMVASTATIN 40 MG TAB PO SCH (21:18)
[2025-04-11] MEDS: TERAZOSIN HCL 1 MG CAP PO SCH (21:18)
[2025-04-12 07:49] LABS: Hemoglobin A1C 7.4 % (4.5-5.6)
[2025-04-12] MEDS: FINASTERIDE 5 MG TAB PO SCH (08:00)
--- NOTE | 2025-04-12 10:41 | Gastrointestinal Consultation ---
Date of Consultation April 12, 2025 Assessment & Plan (1) Mass of pancreas: From a GI standpoint, could approach with outpatient EUS guided biopsy of this mass as we do not have this service at [facility]. Though after conversation with hospitalist, it does sound as though they are planning to do an IR guided lymph node biopsy. Supervising Physician Co-Signing Physician Notes I saw and examined this patient with our nurse practitioner and agree with her assessment and plan. Patient presents with newly diagnosed large pancreatic mass with extensive peripancreatic adenopathy as well as systemic adenopathy in his cervical region as well as in his axilla. Need to consider primary pancreatic cancer as well as other etiologies such as lymphoma. Plan for axillary node biopsy tomorrow. If unrevealing may need pancreatic mass biopsy via endoscopic ultrasound. History of Present Illness Reason for Consultation: "new pancreatic ca" Attending Physician: Geoffrey Suggs, History of Present Illness Patient is a 74 yo male who presents to the ED with progressive fatigue, abdominal pain, & 50 lb weight loss that have been ongoing since June 2024. He notes that things have become worse over the past 4-6 weeks, but this has been an ongoing issue for many months. He notes that as an outpatient it was felt that his weight loss was due to Jardiance. He had an unremarkable colonoscopy in January 2025. He had an outpatient US that showed 2 small pancreatic lesions. An MRI was scheduled for the outpatient setting, but his family encouraged him to come to the ED because he was having worsening abdominal pain and SOB. Since presentation, he had an MRI: IMPRESSION: 1. Pancreatic body mass with neoplastic features, with 360-degree contact with the splenic artery and inseparable from pathological abdominal amalgamated lymphadenopathy. 2. Multiple splenic focal lesions. 3. Diagnostic possibilities include lymphoma rather than metastatic pancreatic carcinoma. Histopathological correlation is advised. 4. A few hepatic focal lesions, with no restricted diffusion or enhancement, possibly simple cysts; however, close follow-up is advised. 5. Pathological abdominal and pelvic lymphadenopathy. 6. Mild ascites. Allergies Allergy/AdvReac Type Severity Reaction Status Date / Time niacin AdvReac Unknown Unknown Verified 04/11/25 11:32 Home Medications Medication Instructions Recorded Confirmed Type aspirin 81 mg tablet 81 mg PO DAILY 04/11/25 04/11/25 History cholecalciferol (vitamin D3) 25 1,000 unit PO DAILY 04/11/25 04/11/25 History mcg (1,000 unit) tablet (Vitamin D3) empagliflozin 10 mg tablet 0 mg PO DIRECTED 04/11/25 04/11/25 History (Jardiance) finasteride 5 mg tablet 5 mg PO QAM 04/11/25 04/11/25 History metformin 500 mg tablet 500 mg PO BID 04/11/25 04/11/25 History simvastatin 40 mg tablet 40 mg PO HS 04/11/25 04/11/25 History terazosin 2 mg capsule 2 mg PO HS 04/11/25 04/11/25 History Patient History Medical History Diabetes Hypertension Surgical History History of appendectomy Social History Smoking Status: Former smoker Tobacco Type: Cigarettes Second Hand Exposure: No; Do You Dip or Chew Tobacco: No; Hx Alcohol Use: No Hx Substance Use: No Preferred Language: Kittitian Communication Ability: Effective Registered Nurse Cardiovascular Icu Required: No Beliefs That Will Affect Care: None Current Living Situation: Spouse Other Information That Helps Us Care for You: No Feels Safe at Home: Yes Safety Concerns: Feels Safe At This Time Assistive Devices: Cane and Walker Review of Systems Constitutional: + fever, + fatigue and + weight loss Respiratory: no cough and no dyspnea Cardiovascular: no chest pain Gastrointestinal: + abdominal pain Physical Exam Constitutional: well developed Respiratory: normal respiratory effort Gastrointestinal (Abdomen): Inspection/Auscultation: abdomen normal to inspection Percussion/Palpation: + abdomen tender and abdomen soft Results & Data Vital Signs (Past 12 Hours) Vital Signs Temp Pulse Resp BP Pulse Ox O2 Del Method 04/12/25 07:15 37.0 C 82 16 166/75 H 95 Room Air 04/11/25 23:29 37.5 C 75 16 145/75 H 95 Room Air PG Care Time/CCT Total # of Minutes Spent Total Time Spent with Patient: Total time spent is greater than 50% in coordination of care (as documented) at patient's floor/unit and/or counseling patient: Coding Level of Care Code 35028 INT INP/OBS CARE 3/75MIN Diagnoses Mass of pancreas K86.89
--- NOTE | 2025-04-12 12:03 | Hospitalist Progress Note ---
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 Initial CT imaging concerning for pancreatic mass. MRI confirms pancreatic mass with what appears to be metastasis, highly concerning for pancreatic cancer Communication with GI team, unable to do ERCP/EUS here at this hospital for biopsy Communication with interventional radiology, able to access left axillary lymph node for biopsy, could not biopsy pancreatic mass itself due to the fact that it surrounding the splenic artery. Extensive conversation with the patient and his at the bedside outlining their options for biopsy. We discussed discharge and cording outpatient biopsy either with interventional radiology or with GI for EUS, we discussed transfer to other hospital for EUS and discussed staying here in the hospital for interventional radiology to biopsy tomorrow. After discussion patient chose to stay here in the hospital and proceed with IR biopsy of his axillary node tomorrow. Patient is able to eat, continue diabetic diet Saline lock IV fluids Transition to oral pain control, add PPI Patient and are aware that highly concerning for metastatic cancer. If that is pancreatic cancer informed that average life expectancy is somewhere between 6 and 12 months. 59 minutes spent on review of records, communication with specialist, education and care with patient at bedside, review and interpretation of data and documentation Admission and Anticipated Discharge Date Admission Date: April 11, 2025 Subjective Patient reports pain is controlled. He is hungry and would like to eat. Physical Exam Physical Exam: Constitutional: Alert, nontoxic HEENT: Mucous membranes moist. Lungs: Clear to auscultation, decreased, no wheezes rales or rhonchi CV: S1-S2, regular Abdomen: Soft, nontender, nondistended Extremities: No significant edema, left axillary lymph node Neuro: No focal deficits Psych: Cooperative, normal mood Results & Data Results & Data Vital Signs (Past 12 Hours) Vital Signs Temp Pulse Resp BP Pulse Ox O2 Del Method 04/12/25 07:15 37.0 C 82 16 166/75 H 95 Room Air Diagnostic Findings Reviewed imaging, laboratory and diagnostic studies. Pertinent findings as below. Glucoses reviewed Hemoglobin A1c 7.4% MRI of the abdomen shows large pancreatic body mass with neoplastic features surrounding the splenic artery with significant abdominal lymphadenopathy, multiple splenic lesions, suspected hepatic lesions and mild ascites.
--- NOTE | 2025-04-12 14:52 | Electrocardiogram Report ---
Test Reason : Blood Pressure : */* mmHG Vent. Rate : 111 BPM Atrial Rate : 111 BPM P-R Int : 118 ms QRS Dur : 144 ms QT Int : 384 ms P-R-T Axes : 30 73 -12 degrees QTcB Int : 522 ms Poor data quality, interpretation may be adversely affected Sinus tachycardia Right bundle branch block Inferior infarct , age undetermined Abnormal ECG No previous ECGs available Confirmed by Mike Narayanan ([id number]) on 04/12/2025 2:52:00 PM Referred By: NO PCP Confirmed By: Mike Narayanan
[2025-04-13 07:38] LABS: Hematocrit (blood only) 33.3 % (42.0-52.0); Hemoglobin 11.0 g/dl (14.0-18.0); Mean Corpuscular Hemoglobin 25.1 pg (25.0-34.0); Mean Corpuscular Volume 76.0 fL (80.0-100.0); Platelet Count 177 K/uL (130-400); RDW Standard Deviation 43.9 fL (36.4-46.3); Red Blood Count 4.38 M/uL (4.70-6.10); White Blood Count 5.68 K/ul (4.8-10.8)
[2025-04-13 08:09] LABS: INR 1.1 (0.9-1.1); Partial Thromboplastin Time 29 Seconds (21-31); Prothrombin Time 11.7 Seconds (9.0-12.0)
[2025-04-13 08:26] LABS: Alanine Aminotransferase 14.0 U/L (7-52); Albumin Level 3.1 gm/dl (3.4-5.0); Alkaline Phosphatase 61.0 U/L (34-104); Anion Gap 11.0 (3-11); Bilirubin,Total 0.4 mg/dl (0.2-1.0); Blood Urea Nitrogen 14.0 mg/dl (6-23); Calcium 9.8 mg/dl (8.6-10.3); Carbon Dioxide 23.0 mmol/L (21-32); Chloride 101.0 mmol/L (98-107); Creatinine Clr Calc Pharmacy 74.2 ml/min; Glucose 134.0 mg/dl (70-99(Fasting)); Potassium 3.8 mmol/L (3.5-5.1); Sodium 135.0 mmol/L (136-145); Total Protein 7.2 gm/dl (6.0-8.3)
--- NOTE | 2025-04-13 09:50 | Discharge Summary ---
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 Presenting the emergency room due to concerns for the symptoms and difficulty getting an expedited outpatient workup. In the emergency room imaging was concerning for a large pancreatic mass and was referred for further evaluation. Patient was cared for in hospital. Was seen by gastroenterology. They recommended EUS for biopsy versus IR guided biopsy. Interventional radiology was consulted. They felt that they could biopsy the axillary lymph node. Discussed this with the patient and the . Discussed possible transfer for EUS versus the lymph node biopsy here. They elected to move forward with a lymph node biopsy. Patient underwent lymph node biopsy on the day of discharge. Postprocedure was uneventful. His abdominal pain was managed with some oxycodone. Reviewed with him the need for regular bowel regimen. Will coordinate outpatient oncology follow-up/referral once his pathology is known. Did discuss with the patient at the bedside that highly concerned that based on the imaging this is consistent with pancreatic cancer. And that it is metastatic to lymph nodes would mean that he most likely is a candidate for palliative treatments at most. Patient will be discharged back to follow-up with PCP. Did recommend he stop the Jardiance in the setting of these new findings of a pancreatic lesion. Notes For Next Care Provider Instructed patient to stop Jardiance. May need alternate treatment for his diabetes Follow with oncology once pathology is known Medication Changes From Visit Jardiance discontinue Oxycodone for pain MiraLAX and Colace for bowel regimen Admission HPI Per Admitting Provider The patient is a 74-year-old male with a past medical history of DM2, HLD, HTN, BPH, vitamin D deficiency who presents to the ED on 04/11/2025 with complaints of ongoing abdominal pain over the past 5 weeks patient's also reports fatigue and loss of appetite. Patient had a 50 pound weight loss over the past 2 years. Patient was following with his doctors outpatient but his was concerned and wanted him to be evaluated sooner. The patient reports that the patient had an outpatient ultrasound of his abdomen and right upper quadrant that showed 2 small lesions on his pancreas. They were scheduled to have an MRI of the abdomen on may 07. Patient's denies any fever/chills/chest pain/shortness of breath. He does report some very vague symptoms including the patient claiming that he felt he was "punched in his stomach" and had a dull right upper quadrant pain. The patient was started on Jardiance 1 year ago and the weight loss was contributed to the Jardiance. The patient was also constipated, he had a colonoscopy completed in January that was unremarkable. Labs are remarkable for hemoglobin 11.9, NA 134, CO2 22, anion gap 15, glucose 162, urinalysis unremarkable Chest CTA/ Abdominal/pelvis CT showed: 1. There is a mass within or abutting the pancreatic body with findings concerning for mild acute pancreatitis of the tail. 2. Thoracic, abdominal and pelvic adenopathy most concerning for metastatic disease. 3. Hepatosplenomegaly. Areas of hypodensity scattered throughout the spleen could reflect metastatic disease. 4. Suspect cystitis. Correlate with urinalysis. 5. No pulmonary embolus noted. 6. Large fatty liver. Lymph nodes: Multiple enlarged left axillary nodes present measuring up to short axis dimension 1.7 cm. There are multiple shoddy and minimally enlarged paratracheal nodes. There are small retrocrural nodes. There are matted retroperitoneal nodes measuring up to 2.2 cm diameter. Increased numbers of small mesenteric nodes present. There are shotty periportal nodes. There are shotty and few minimally enlarged bilateral iliac nodes. Admission Exam Per Admitting Provider See H&P Discharge Exam Constitutional: Alert, nontoxic HEENT: Mucous membranes moist. Lungs: Clear to auscultation, decreased, no wheezes rales or rhonchi CV: S1-S2, regular Abdomen: Soft, nontender, nondistended Extremities: No significant edema, small Band-Aid coverings area of lymph node biopsy, no hematoma, no discharge, no significant pain. Neuro: No focal deficits Psych: Cooperative, normal mood Updated Medication List Medication Instructions Recorded Confirmed Type aspirin 81 mg tablet 81 mg PO DAILY 04/11/25 04/11/25 History cholecalciferol (vitamin D3) 25 1,000 unit PO DAILY 04/11/25 04/11/25 History mcg (1,000 unit) tablet (Vitamin D3) empagliflozin 10 mg tablet 0 mg PO DIRECTED 04/11/25 04/11/25 History (Jardiance) finasteride 5 mg tablet 5 mg PO QAM 04/11/25 04/11/25 History metformin 500 mg tablet 500 mg PO BID 04/11/25 04/11/25 History simvastatin 40 mg tablet 40 mg PO HS 04/11/25 04/11/25 History terazosin 2 mg capsule 2 mg PO HS 04/11/25 04/11/25 History docusate sodium 100 mg capsule 100 mg PO DAILY #30 caps 04/13/25 Rx (Colace) oxycodone 5 mg tablet 5 mg PO Q4H PRN pain #15 tabs 04/13/25 Rx pantoprazole 40 mg tablet,delayed 40 mg PO QAM #30 tabs 04/13/25 Rx release polyethylene glycol 3350 17 17 g PO DAILY #238 grams 04/13/25 Rx gram/dose oral powder (Miralax) Hospital Stay Data Consultations 04/11/25 10:58 ED Decision to Admit Stat 04/11/25 12:49 Consult Gastroenterology Routine Diagnostic Imagining Performed 04/11/25 08:21 CT abd pelvis IV con only Stat CT angio chest PE protocol Stat 04/11/25 11:08 MR abdomen wo/w con Routine 04/13/25 IR biopsy lymph US Routine 04/13/25 09:08 IR biopsy lymph US Routine Reviewed imaging, laboratory and diagnostic studies. Pertinent findings as below. WBCs 5.6 Hemoglobin 11.0 Platelets of 177 Coagulation studies within normal ranges Electrolytes stable Creatinine 0.99 Hemoglobin A1c 7.4% LFTs within normal ranges MRI of the abdomen IMPRESSION: 1. Pancreatic body mass with neoplastic features, with 360-degree contact with the splenic artery and inseparable from pathological abdominal amalgamated lymphadenopathy. 2. Multiple splenic focal lesions. 3. Diagnostic possibilities include lymphoma rather than metastatic pancreatic carcinoma. Histopathological correlation is advised. 4. A few hepatic focal lesions, with no restricted diffusion or enhancement, possibly simple cysts; however, close follow-up is advised. 5. Pathological abdominal and pelvic lymphadenopathy. 6. Mild ascites. Pending Results Patient Have Any Pending Studies at Discharge: Yes Discharge Instructions Given to Patient (Per Discharging Provider) Oncology will coordinate an appointment with you after pathology is known You will need ongoing outpatient evaluation for this pancreatic mass determine best course of care moving forward after pathology is known Stop Jardiance. You need to discuss with your PCP alternate treatment for your diabetes Total Time Total Time Spent Total Time Spent (In Minutes): 31
[2025-04-13] MEDS: CHOLECALCIFEROL 25 MCG (1000 UNITS) TAB PO SCH (09:54)
[2025-04-13 10:13] VITALS: RESP 16
[2025-04-13 10:31] VITALS: PULSE 87; TEMP 98.2; O2SAT 95
[2025-04-13 11:23] VITALS: BP 152/81
--- NOTE | 2025-04-13 14:31 | Ultrasound Report ---
ULTRASOUND-GUIDED LEFT AXILLARY LYMPH NODE CORE BIOPSY X2 INDICATION: Pancreatic mass; lymphadenopathy PROCEDURE: Procedure and risks were explained. Informed consent was obtained. A final timeout was com pleted. The left axilla was prepped and draped in sterile fashion. 1% lidocaine was utilized for skin anesthesia. Utilizing ultrasound guidance, an 18-gauge core biopsy needle was advanced into the superficial 2.3 x 1.1 cm left axillary lymph node. Ultrasound images were obtained. 3 cores were obtained and given to the pathologist for review. Initial rapid on site evaluation demonstrated tangles of lymphocytes wit hout abnormal cellularity. Due to the rapid onset of evaluation, it was decided to targeted the deepe r left axillary lymph node measuring 2.3 cm x 1.4 cm. Utilizing ultrasound guidance, an 18-gauge core biopsy needle was advanced into the deeper left axillary lymph node. Ultrasound images were obtained . 3 cores were obtained and given to the pathologist for review. The patient tolerated both procedure s well. IMPRESSION: Ultrasound-guided left axillary lymph node core biopsy x2 as above. Performed, dictated, and signed by Cj Sosa PA-C; to be co-signed by Dr. Kobe Arango. Electronically signed by: Kobe Arango M.D. 04/13/2025 3:12 PM
== END 2025-04-13 11:54 | disposition home or self-care (01) | DRG 436 ==
LOC: ED 07:56 → 3N 11:05 → SUATTDRO 11:05 → 3N 12:58